=== PATIENT | female | born 1980 | race Caucasian/White ===

== ENCOUNTER → 2018-02-15 | Outpatient (CLI) | payer BC | LOC: COL.RAD 13:22 | DX: M54.2 Cervicalgia (principal); E07.89 Other specified disorders of thyroid ==

== ENCOUNTER → 2018-10-25 | Outpatient (CLI) | payer BC | LOC: COL.RAD 10-06 09:30 | DX: K21.9 Gastro-esophageal reflux disease without esophagitis (principal); K44.9 Diaphragmatic hernia without obstruction or gangrene ==